=== PATIENT | female | born 1965 | race Caucasian/White ===

== ENCOUNTER 2019-05-29 09:57 | Day surgery (SDC) | payer BC ==
[2019-05-29] MEDS ORDERED: PROPOFOL 20 ML ×2 (12:19→12:50)
[2019-05-29] MEDS ORDERED: FENTAnyl 50 MCG/ML VIAL (12:19)
== END 2019-05-29 15:18 | disposition home or self-care (01) ==
LOC: GIL 09:57
DX: Z12.11 Encounter for screening for malignant neoplasm of colon (principal); K64.8 Other hemorrhoids; K57.30 Diverticulosis of large intestine without perforation or abscess without bleeding; K21.9 Gastro-esophageal reflux disease without esophagitis; I10 Essential (primary) hypertension; J45.909 Unspecified asthma, uncomplicated
CPT/HCPCS: 43239; 88305